=== PATIENT | male | born 1945 | race Caucasian/White ===

== ENCOUNTER 2016-09-11 10:35 | Day surgery (SDC) | payer MEDICARE, OTHER ==
--- NOTE | ~2016-09-11 | EGD ---
EGD REPORT [facility] [address] 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 [place] Complications: No immediate complications. Estimated blood loss: None. Procedure: Pre-Anesthesia Assessment: - ASA Grade Assessment: III - A patient with severe systemic disease. After obtaining informed consent, the endoscope was passed under direct vision. Throughout the procedure, the patient's blood pressure, pulse, and oxygen saturations were monitored continuously. The Endoscope was introduced through the mouth, and advanced to the second part of duodenum. Findings: Endosonographic Finding : A multicystic lesion suggestive of a cyst was identified in the pancreatic head. The lesion measured 26 mm by 18 mm in maximal cross-sectional diameter. There were many compartments thinly septated. There was no associated mass. There was no internal debris within the fluid-filled cavity. Needle aspiration for fluid was performed. Color Doppler imaging was utilized prior to needle puncture to confirm a lack of significant vascular structures within the needle path. One pass was made with the 22 gauge needle. Sample(s) were sent for cytology. An anechoic lesion suggestive of a cyst was identified in the pancreatic body. The lesion measured 6 mm by 3 mm in maximal cross-sectional diameter. There was a single compartment. The pancreatic duct had a normal endosonographic appearance in the entire pancreas. The pancreatic duct measured up to 2 mm in diameter. There was no sign of significant endosonographic abnormality in the common bile duct. An unremarkable gallbladder was identified. There was no sign of significant endosonographic abnormality in the examined duodenum. Endosonographic images of the stomach were unremarkable. There was no sign of significant endosonographic abnormality in the esophagus. Impression: - A 26 mm by 18 mm cystic lesion was seen in the EGD REPORT [address] [id number] NAME: JESSE JOAQUIN : [birth year] [place]US [place] [facility] [place] [id number] AGE: 71 ADM/REG DATE : 09/11/16 MR#: [id number] REPORT SERV DATE: 09/11/16 DICTATED BY: SAUL FERNANDEZ DATE: 09/11/16 REPORT STATUS : Draft TRANSCRIBED BY: [employer] DATE: 09/11/16 pancreatic head. - A 6 mm by 3 mm cystic lesion was seen in the pancreatic body. - The pancreatic duct had a normal endosonographic appearance in the entire pancreas. The pancreatic duct measured up to 2 mm in diameter. - There was no sign of significant pathology in the common bile duct. - There was no sign of significant pathology in the examined duodenum. - Endosonographic images of the stomach were unremarkable. - There was no sign of significant pathology in the esophagus. Recommendation: - Return to previous diet. - Continue present medications. - Await cytology results. - Cipro (ciprofloxacin) 500 mg PO BID for 2 days. Procedure Code(s): --- Professional --- 21779, Esophagogastroduodenoscopy, flexible, transoral; with transendoscopic ultrasound-guided intramural or transmural fine needle aspiration/biopsy(s) (includes endoscopic ultrasound examination of the esophagus, stomach, and either the duodenum or a surgically altered stomach where the jejunum is examined distal to the anastomosis) Diagnosis Code(s): --- Professional --- K86.2, Cyst of pancreas CPT copyright 2013 [employer]. All rights reserved. The codes documented in this report are preliminary and upon filer and sander review may be revised to meet current compliance requirements. SAUL FERNANDEZ, 09/11/2016 12:37 PM Number of Addenda: 0 Note Initiated On: 09/11/2016 12:14 PM Scope Withdrawal Time 0 hours 0 minutes 0 seconds [address] [id number]
[~2016-09-11 10:35] MED LIST: ACTOS45 PO; AMARYL4 PO; ASAB PO; GLUCPH8 PO; IBU-200200 MG PO; MCZ25 PO; METHOC750B PO; NASONEX NAS; NORCO1 TAB PO; NOVOPEN SC; PCET PO; PERCOCET1 TA4 PO; SEVERAL VITS PO; TRAZ50 PO; V2 PO; VITC500 PO; X5 PO
== END 2016-09-11 23:59 | disposition home or self-care (01) ==
LOC: DMU 10:35
PROVIDERS: Internal Medicine Gastroenterology
PROC: 0F9G4ZX Drainage of Pancreas, Percutaneous Endoscopic Approach, Diagnostic (ICD-10-PCS; principal; 2016-09-11 11:30)
DX: K86.2 Cyst of pancreas (principal); I73.9 Peripheral vascular disease, unspecified; K21.9 Gastro-esophageal reflux disease without esophagitis; E11.9 Type 2 diabetes mellitus without complications; F41.9 Anxiety disorder, unspecified; Z79.84 Long term (current) use of oral hypoglycemic drugs; Z79.4 Long term (current) use of insulin; Z79.899 Other long term (current) drug therapy
CPT/HCPCS: 82962; 88173; 88305; C1725; J1956